=== PATIENT | male | born 1965 | race Caucasian/White ===

== ENCOUNTER → 2018-02-22 13:57 | Outpatient (CLI) | payer BC ==
[2015-02-03 15:39] VITALS: BMI 29.6
[~2018-02-22 13:57] MED LIST: BAYER CHEWABLE81 MG PO; CARAFATE1 G PO; COMBIVENT RESPIM4 GM INH; HYDROCODONE-APA1 TAB PO; METOPROLOL-HCTZ1 TA3 PO; NEXIUM40 MG PO
== END | disposition home or self-care (01) ==
LOC: D.CT 13:57
DX: M79.605 Pain in left leg (principal); M79.604 Pain in right leg; I25.10 Atherosclerotic heart disease of native coronary artery without angina pectoris

== ENCOUNTER 2018-03-07 06:36 | Outpatient (CLI) | payer BC ==
[~2018-03-07] VITALS: Ht 177.8 cm; Wt 96.8 kg
--- NOTE | ~2018-03-07 | HEMODYNAMI ---
PATIENT:EMILY DOWNS MEDICAL RECORD: [id number] : 69 LOCATION:[facility] ADMISSION DATE: 03/07/18 Generatedon:03/07/20188:55 Patient name: EMILY DOWNS Patient #: [id number] SSN: : 1965 Date of study: 03/07/2018 Page: Of Hemodynamic Procedure Report Patient Data Patient Demographics Procedure consent was obtained First Name: EMILY Gender: Male Last Name: YARELI : 1965 [facility] Initial: LORENA Age: 53 year(s) Patient #: [id number] Race: Additional ID: [id number] Contact details [address]: [address] [place] [address] [place]O State: [place] City: [place] Zip code: [address] Past Medical History Allergies: No known allergies Admission Admission Data Admission Date: 03/07/2018 Admission Time: 6:36 Lab Results Lab Result Date: 03/07/2018 Lab Result Time: 7:20 Biochemistry Name Units Result Min Max BUN mg/dl 20 --(----)*- 7 18 Creatinine mg/dl 1 --(--*-)-- 0.6 1.3 CBC Name Units Result Min Max Hematocrit % 44.9 --(*---)-- 42 54 Hemoglobin g/dl 15.2 --(-*--)-- 13.5 17.5 Procedure Procedure Types Cath Procedure Peripheral Cath Diagnostic Procedure Building Construction Engineer Peripheral Procedures Brpxq-Esjbpsv-Erb-Off Procedure Description Procedure Date Procedure Date: 03/07/2018 Procedure Start Time: 8:42 Procedure End Time: 8:51 Procedure Staff Name Function [place] Connolly MD Performing Physician Katie Eller RN Nurse Bhanu Rajan RN Automotive Light Mechanic Lars Mcknight RT Monitor Sara Squires RT Scrub Procedure Data Cath Procedure Fluoroscopy Diagnostic fluoroscopy Total fluoroscopy Time: 0.7 time: 0.7 min min Diagnostic fluoroscopy Total fluoroscopy dose: 177 dose: 177 mGy mGy Contrast Material Contrast Material Type Amount (ml) Isovue 300 69 Entry Location Entry Primary Successful Side Size Upsize Upsize Entry Closure Succes sful Closure Location (Fr) 1 (Fr) 2 (Fr) Remarks Device Remarks Femoral Left 5 Fr Exoseal artery Estimated blood loss: 5 ml Diagnostic catheters Device Type Used For End Catheter Placement DIAGNOSTIC UF 5Fr Procedure catheter ([id number]) Procedure Complications No complications Procedure Medications Medication Administration Route Dosage 0.9% NaCl I.V. 100 ml/hr Oxygen etCO2 Nasal cannula 2 l/min Heparin Flush Bag added to field 2 bags (1000units/500ml NS) Fentanyl I.V. 50 mcg Versed I.V. 2 mg Lidocaine 2% added to field 20 Versed I.V. 2 mg Fentanyl I.V. 50 mcg Hemodynamics Rest HGB: 15.2 (g/dl) Heart Rate: 58 (bpm) Snapshots Pre Cath Intra NCS Post Cath Vital Signs Time Heart Resp SPO2 etCO2 NIBP (mmHg) Rhythm Pain Sedation Rate (ipm) (%) (mmHg) Status Level (bpm) 8:24:32 194 17 98 30.4 152/83(107) NSR 0 (11) 10(A) , No pain 8:28:52 66 18 98 27.4 139/89(111) NSR 0 (11) 10(A) , No pain 8:33:14 54 16 99 34.3 135/78(113) NSR 0 (11) 10(A) , No pain 8:37:34 59 18 99 23.6 132/80(95) NSR 0 (11) 10(A) , No pain 8:41:52 58 18 98 37.3 120/81(96) NSR 0 (11) 9(A) , No pain 8:46:08 62 16 97 29.6 115/77(99) NSR 0 (11) 9(A) , No pain 8:50:20 61 13 96 20.5 127/82(103) NSR 0 (11) 10(A) , No pain Medications Time Medication Route Dose Verified Delivered Reason Notes Effe ctiveness by by 8:24:10 0.9% NaCl I.V. 100 [place] used for ml/hr Mohsen Eller supervisor education 8:24:16 Oxygen etCO2 2 [place] used for Nasal l/min Mohsen Eller procedure cannula RN 8:39:55 Heparin Flush added 2 [place] used for Bag to bags Mohsen Eller procedure (1000units/500ml field RN NS) 8:40:05 Fentanyl I.V. 50 [place] for mcg Mohsen Eller sedation RN 8:40:13 Versed I.V. 2 mg [place] for Mohsen Eller sedation RN 8:42:33 Lidocaine 2% added 20ml [place] for local to vial Mohsen Connolly MD anesthetic field 8:47:51 Versed I.V. 2 mg [place] for Mohsen Eller sedation RN 8:47:56 Fentanyl I.V. 50 [place] for mcg Mohsen Eller sedation powder coat painter Log Time Note 8:10:36 Procedure type changed to Cath procedure, Peripheral Cath Diagnostic Procedure, Building Construction Engineer Peripheral Procedures, Hkiml-Xljlkjq-Vbg-Off 8:10:53 Time tracking: Regular hours (M-F 7:00 - 5:00) 8:10:57 Plan of Care:Hemodynamics will remain stable., Cardiac rhythm will remain stable., Comfort level will be maintained., Respiratory function will remain adequate., Patient/ family verbilizes understanding of procedure., Procedure tolerated without complication., Recovers from procedure without complications.. 8:11:00 Bhanu Rajan RN sent for patient. Start room use. 8:19:30 Patient received from Pre/Post Procedure Room to CCL 1 Alert and oriented. Tansferred to table in Supine position. 8:19:31 Warm blankets applied, and cathy hugger turned on for patient comfort. 8:19:32 Correct patient and procedure confirmed by team. 8:19:34 Signed procedure consent form obtained from patient. 8:19:35 ECG and BP/O2 sat monitors applied to patient. 8:19:36 Full Disclosure recording started 8:23:14 Vital chart was started 8:24:10 0.9% NaCl 100 ml/hr I.V. was administered by Katie Eller RN; used for procedure; 8:24:16 Oxygen 2 l/min etCO2 Nasal cannula was administered by Katie Eller RN; used for procedure; 8:34:58 Baseline sample Acquired. 8:35:02 Rhythm: sinus rhythm 8:35:20 H&P Date Dictated: 02/08/2018 Within 30 days and on chart., H&P Addendum completed by physician on day of procedure. (MUST COMPLETE FOR ALL OUTPATIENTS). 8:35:21 Pre-procedure instructions explained to patient. 8:35:21 Pre-op teaching completed and patient verbalized understanding. 8:35:22 Family in waiting room. 8:35:23 Patient NPO since Midnight. 8:35:33 Patient allergic to No known allergies 8:35:35 Is the patient allergic to Iodine/contrast media? No. 8:35:38 Is patient on blood thinner?Yes 8:35:44 ACC The patient was administered the following blood thiners within the last 24 hours: ACCAspirin 8:35:47 Patient diabetic? No. 8:35:49 Previous problem with sedation/anesthesia? No ? 8:35:51 Snore? No 8:35:52 Sleep apnea? No 8:35:53 Deviated septum? No 8:35:53 Opens mouth fully? Yes 8:35:54 Sticks out tongue? Yes 8:35:55 Airway obstruction? No ? 8:35:57 Dentures? No ? 8:36:00 Pre procedure: right posterior tibial pulse 2+ Normal; easily identifiable; not easily obliterated 8:36:10 Pre procedure: left dorsailis pedis pulse 0-Absent 8:36:13 Patient pain scale 0/10 ?. 8:36:16 IV patent on arrival in left hand with 0.9% NaCl at KVO. 8:37:31 Lab Result : BUN 20 mg/dl 8:37:31 Lab Result : Creatinine 1 mg/dl 8:37:31 Lab Result : Hemoglobin 15.2 g/dl 8:37:31 Lab Result : Hematocrit 44.9 % 8:37:33 Lab results completed and on chart. 8:37:35 Bilateral groins area was prepped with chlora-prep and draped in sterile fashion 8:37:36 Alarms reviewed by R. N. 8:37:36 Sharps counted by scrub and verified by R.N. 8:37:39 ACIST Syringe (65779) opened to sterile field. 8:37:40 Bag Decanter (2002S) opened to sterile field. 8:37:40 Medline Cath Pack ([id number]) opened to sterile field. 8:37:41 ACIST Hand Control (83429) opened to sterile field. 8:37:42 ACIST Manifold (04696) opened to sterile field. 8:37:43 Tegaderm 4 x 4 (1626W) opened to sterile field. 8:37:44 SHEATH 5FR Deep Run (PVU141) opened to sterile field. 8:37:45 DIAGNOSTIC WIRE .035 260cm J wire (205509) opened to sterile field. 8:38:03 Physician arrived 8:38:04 --------ALL STOP TIME OUT------ 8:38:04 Final Timeout: patient, procedure, and site verified with staff and physician. All members of the team are in agreement. 8:38:06 Bilateral groins site verified by team. 8:38:09 Physical assessment completed. ASA score P 2 - A patient with mild systemic disease as per Lake Connolly MD. 8:38:11 Sedation plan: IV Moderate Sedation Medication:Versed, Fentanyl 8:38:43 Zero performed for pressure channel P1 8:39:55 Heparin Flush Bag (1000units/500ml NS) 2 bags added to field was administered by Katie Eller RN; used for procedure; 8:40:05 Fentanyl 50 mcg I.V. was administered by Katie Eller RN; for sedation; 8:40:13 Versed 2 mg I.V. was administered by Katie Eller RN; for sedation; 8:42:16 Procedure started. 8:42:19 Local anesthetic to left femerol artery with Lidocaine 2% by Lake Connolly MD.INITIAL ACCESS ONLY 8:42:33 Lidocaine 2% 20ml vial added to field was administered by Lake Connolly MD; for local anesthetic; 8:43:06 A 5 Fr sheath was inserted into the Left Femoral artery 8:45:09 A DIAGNOSTIC UF 5Fr catheter ([id number]) was advanced over the wire and used for Procedure. 8:45:48 Abdominal angiogram w/ runoff was performed. 8:45:57 Left leg runoff performed. 8:46:14 Right leg runoff performed. 8:47:25 Left leg runoff performed. 8:47:51 Versed 2 mg I.V. was administered by Katie Eller RN; for sedation; 8:47:56 Fentanyl 50 mcg I.V. was administered by Katie Eller RN; for sedation; 8:49:49 DIAGNOSTIC WIRE .035 260cm J wire (183755) opened to sterile field. 8:49:53 Catheter removed. 8:50:01 EXOSEAL 5Fr (EX500) opened to sterile field. 8:50:09 Sheath removed intact; hemostasis achieved with Exoseal to the Left Femoral artery. 8:50:11 Procedure ended.(Physican Out) 8:50:27 Fluoroscopy time 00.70 minutes. 8:50:30 Fluoroscopy dose: 177 mGy 8:50:30 Flurop Dose total: 177 8:50:34 Contrast amount:Isovue 300 69ml. 8:50:35 Sharps counted by scrub and verified by R.N. 8:50:40 Insertion/operative site no bleeding no hematoma. 8:50:42 Post-op/insertion site Left Femoral artery dressed using a 4 x 4 and Tegaderm. 8:50:47 Post left femerol artery:stable, soft, clean and dry 8:50:49 Post Procedure Pulses reassessed and unchanged 8:50:51 Post-procedure physical assessment completed. ASA score P 2 - A patient with mild systemic disease as per Lake Connolly MD. 8:50:53 Post procedure rhythm: unchanged. 8:50:55 Estimated blood loss: 5 ml 8:50:57 Post procedure instruction explained to patient.Patient verbalizes understanding. 8:50:57 Patient needs reinforcement of post procedure teaching. 8:51:24 Procedure and supply charges have been captured, reviewed, submitted and are correct. 8:51:32 Procedure Complication : No complications 8:51:35 Vital chart was stopped 8:51:35 See physician's report for complete and final results. 8:51:36 Report given to Pre/Post Procedure Room. 8:51:39 Patient transfered to Pre/Post Procedure Room with Stretcher. 8:51:41 Procedure ended. 8:51:41 Full Disclosure recording stopped 8:51:45 End room use (Document Last) Device Usage Item Name Manufacture Quantity Catalog Hospital Part Current Minimal L ot# / Number Charge Number Stock Stock Serial# Code ACIST Acist 1 [id number] 768952 758006 403258 20 RETAIL PRO (90414) [employer] Bag Microtek 1 2001S 092288 97884 907518 5 Decanter Medical Inc. (2001S) Medline Medline 1 [id number] 562085 27295 900274 5 Cath Pack ([id number]) ACIST Hand Acist 1 47345 012552 179879 084530 5 Control Medical (32395) Systems Inc ACIST Acist 1 02695 657757 424710 031958 5 Manifold Medical (02530) Systems Inc Tegaderm 4 3M 1 1626W 993934 640848 464819 5 x 4 (1626W) SHEATH 5FR Terumo 1 [id number] 887539 560038 954680 5 Deep Run (BXF938) DIAGNOSTIC [facility] 2 168032 210290 762634 218377 30 WIRE .035 260cm J wire (345868) DIAGNOSTIC Cardinal 1 [id number] 057939 438576 695179 10 UF 5Fr Health catheter (303113H9) EXOSEAL 5Fr Cardinal 1 EX500 265272 783174 244040 10 (EX500) Health Signature Audit [place] Stage Time Signature Unsigned Intra-Procedure 03/07/2018 Lars Mcknight 8:55:14 AM RT(R) Signatures Monitor : Lars Mcknight RT Signature : Date : Time : [address] [place] [address]
[2018-03-07] MEDS ORDERED: LOSARTAN POTASS25 MG PO (07:00)
[2018-03-07] MEDS ORDERED: RANEXA1000 MG PO (07:01)
[2018-03-07 07:11] VITALS: BP 132/80; Ht 177.8 cm; Wt 96.8 kg
[2018-03-07] MEDS ORDERED: BYSTOLIC5 MG PO (07:26)
[2018-03-07] MEDS ORDERED: NORVASC5 MG PO (07:26)
[2018-03-07 07:37] LABS: BASOPHILS 0.6 % (0-2); EOSINOPHILS 1.6 % (0-7); HEMATOCRIT 44.9 % (42.0-54.0); HEMOGLOBIN 15.2 g/dL (13.5-17.5); IMMATURE GRANULOCYTES 0.2 % (0-5); LYMPHOCYTES 39.8 % (15-50); MCH 31.3 pg (26.0-34.0); MCHC 33.9 g/dL (31.0-37.0); MCV 92.4 fL (80.0-100.0); MEAN PLATELET VOLUME 10.7 fL (7.4-10.4); MONOCYTES 10.4 % (2-11); NEUTROPHILS 47.4 % (40-80); PLATELET COUNT 204 10x3/uL (130-400); RBC 4.86 10x6/uL (4.20-6.10); WBC 5.1 10x3/uL (4.8-10.8)
[2018-03-07 08:01] LABS: CALC OSMOLALITY 281 mosm/kg (275-300); CALCIUM 8.6 mg/dL (8.5-10.1); CARBON DIOXIDE 26.8 mmol/L (21.0-32.0); CHLORIDE - SERUM 103 mmol/L (98-107); GLUCOSE 111 mg/dL (74-106); POTASSIUM - SERUM 3.9 mmol/L (3.5-5.1); SODIUM 139 mmol/L (136-145); UREA NITROGEN 20 mg/dL (7-18); eGFR NON AFRICAN AMERICAN 84 mL/min (90-120)
--- NOTE | 2018-03-07 09:19 | NUR ---
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 L/FOOT WARM TO TOUCH, INSTRUCTED PATIENT TO KEEP HEAD FLAT ON PILLOW WITH LLE STRAIGHT. DR GRECO PRESENT IN ROOM TALKING TO PATIENT AND
--- NOTE | 2018-03-07 09:34 | NUR ---
5 FR EXOSEAL L/GROIN REMAINS CDI WITH NO BLEEDING OR HEMATOMA NOTED. HR 60 BP 114/75 NO DISTRESS NOTED.
--- NOTE | 2018-03-07 09:49 | NUR ---
RESTING QUIETLY WITH NO DISTRESS VSS AND 5 FR EXOSEAL L/GROIN CDI
--- NOTE | 2018-03-07 10:05 | NUR ---
5 FR EXOSEAL L/GROIN CDI WITH NO DISTRESS NOTED VSS AND PATIENT RESTING QUIETLY
--- NOTE | 2018-03-07 10:20 | NUR ---
PATIENT CONTINUES TO SLEEP WITH NO DISTRESS. L/GROIN REMAINS CDI CALL LIGHT IS IN REACH WITH FAMILY AT BEDSIDE
--- NOTE | 2018-03-07 10:52 | NUR ---
5 FR EXOSEAL L/GROIN CDI WITH NO BLEEDING OR HEMATOMA NOTED. REPOSITIONED TO SITTING WITH HOB UP 30 WITH CHEST PAIN DENIED
--- NOTE | 2018-03-07 11:21 | NUR ---
PIV REMOVED WITH DRESSING APPLIED. 5 FR EXOSEAL L/GROIN REMAINS CDI NO BLEEDING OR HEMATOMA NOTED.
--- NOTE | 2018-03-07 11:41 | NUR ---
VERBAL AND WRITTEN DISCHARGE GONE OVER WITH PATIENT AND BOTH VERBALIZED UNDERSTANDING. 5 FR EXOSEAL L/GROIN REMAINS CDI WITH NO BLEEDING OR HEMATOMA NOTED. PATIENT LEFT VIA WC TO PARKING FOR TRANSPORT HOME NO DISTRESS
== END 2018-03-07 11:43 | disposition home or self-care (01) ==
LOC: D.CATH 06:36
PROVIDERS: Internal Medicine Cardiovascular Disease
DX: I70.249 Atherosclerosis of native arteries of left leg with ulceration of unspecified site (principal)

== ENCOUNTER 2018-03-14 11:18 | Outpatient (CLI) | payer BC ==
[~2018-03-14] VITALS: Ht 177.8 cm; Wt 96.8 kg
--- NOTE | ~2018-03-14 | HEMODYNAMI ---
PATIENT:EMILY DOWNS MEDICAL RECORD: [id number] : 69 LOCATION:[facility] ADMISSION DATE: 03/14/18 Generatedon:03/14/201814:41 Patient name: EMILY DOWNS Patient #: [id number] SSN: : 1965 Date of study: 03/14/2018 Page: Of Hemodynamic Procedure Report Patient Data Patient Demographics Procedure consent was obtained First Name: EMILY Gender: Male Last Name: YARELI : 1965 [facility] Initial: LORENA Age: 53 year(s) Patient #: [id number] Race: Additional ID: [id number] Contact details Address: [address] [place] [address] [place] State: [place] City: [place] Zip code: [address] Past Medical History Allergies: No known allergies Admission Admission Data Admission Date: 03/14/2018 Admission Time: 11:18 Admit Source: Other Lab Results Lab Result Date: 03/14/2018 Lab Result Time: 11:50 Biochemistry Name Units Result Min Max BUN mg/dl 17 --(---*)-- 7 18 Creatinine mg/dl 1 --(--*-)-- 0.6 1.3 CBC Name Units Result Min Max Hematocrit % 44.3 --(*---)-- 42 54 Hemoglobin g/dl 15.1 --(-*--)-- 13.5 17.5 Procedure Procedure Types Cath Procedure Peripheral vascular Intervention Stent Stent-Fem/Popw/plasty Procedure Description Procedure Date Procedure Date: 03/14/2018 Procedure Start Time: 13:15 Procedure End Time: 14:33 Procedure Staff Name Function Lake Connolly MD Performing Physician Lars Mcknight RT Monitor Rolando Bunn RT Scrub Anatoly Mo RN Nurse Procedure Data Cath Procedure Fluoroscopy Diagnostic fluoroscopy Total fluoroscopy Time: time: 21.7 min 21.7 min Diagnostic fluoroscopy Total fluoroscopy dose: 475 dose: 475 mGy mGy Contrast Material Contrast Material Type Amount (ml) Isovue 300 122 Entry Location Entry Primary Successful Side Size Upsize 1 Upsize Entry Closure Successful Closure Location (Fr) (Fr) 2 (Fr) Remarks Device Remarks Femoral Right 5 Fr Manual vein Compressio n Femoral Right 6 Fr 6 Fr 6 Fr Exoseal artery Short Mid-Length Short Estimated blood loss: 10 ml Diagnostic catheters Device Type Used For End Catheter Placement DIAGNOSTIC IM 5Fr Procedure catheter ([id number]) Procedure Complications No complications Procedure Medications Medication Administration Route Dosage 0.9% NaCl I.V. 100 ml/hr Oxygen etCO2 Nasal cannula 2 l/min Heparin Flush Bag added to field 2 bags (1000units/500ml NS) Lidocaine 2% added to field 20 Benadryl I.V. 50 mg Versed I.V. 2 mg Fentanyl I.V. 100 mcg Versed I.V. 2 mg Fentanyl I.V. 100 mcg Versed I.V. 1 mg Versed I.V. 1 mg Fentanyl I.V. 50 mcg Heparin Bolus I.V. 8000 units Fentanyl I.V. 50 mcg Versed I.V. 1 mg Plavix P.O. 600 mg Versed I.V. 1 mg Hemodynamics Rest HGB: 15.1 (g/dl) Heart Rate: 59 (bpm) Snapshots Pre Cath Intra NCS Post Cath Vital Signs Time Heart Resp SPO2 etCO2 NIBP (mmHg) Rhythm Pain Sedation Rate (ipm) (%) (mmHg) Status Level (bpm) 12:58:16 58 11 98 36.2 135/89(98) NSR 0 (11) 10(A) , No pain 13:02:34 60 18 97 30.2 119/57(89) NSR 0 (11) 10(A) , No pain 13:06:35 56 15 95 32.4 123/85(96) NSR 0 (11) 10(A) , No pain 13:10:37 59 16 96 28.6 126/93(102) NSR 0 (11) 10(A) , No pain 13:14:43 62 12 92 30.2 124/81(109) NSR 0 (11) 10(A) , No pain 13:18:45 61 12 94 36.9 134/96(117) NSR 0 (11) 10(A) , No pain 13:22:48 63 14 92 30.9 137/100(116) NSR 0 (11) 10(A) , No pain 13:26:56 63 11 93 34.7 134/91(113) NSR 0 (11) 9(A) , No pain 13:31:00 64 12 92 40 137/97(119) NSR 0 (11) 9(A) , No pain 13:35:14 64 12 92 42.2 133/71(97) NSR 0 (11) 9(A) , No pain 13:39:24 65 25 96 22.6 120/78(91) NSR 0 (11) 9(A) , No pain 13:43:32 64 16 95 41.5 118/71(93) NSR 0 (11) 9(A) , No pain 13:47:38 63 17 96 38.4 111/76(96) NSR 0 (11) 9(A) , No pain 13:51:37 63 15 92 39.9 123/83(105) NSR 0 (11) 9(A) , No pain 13:55:37 65 13 92 41.4 134/91(119) NSR 0 (11) 9(A) , No pain 13:59:51 65 13 93 42.2 143/68(119) NSR 0 (11) 9(A) , No pain 14:04:03 64 13 92 43.7 128/81(113) NSR 0 (11) 9(A) , No pain 14:08:10 67 24 96 30.1 112/77(90) NSR 0 (11) 9(A) , No pain 14:12:12 62 13 95 40 130/80(94) NSR 0 (11) 9(A) , No pain 14:16:18 64 11 94 40.6 118/86(96) NSR 0 (11) 9(A) , No pain 14:20:24 62 17 95 36.2 120/76(98) NSR 0 (11) 9(A) , No pain 14:24:27 63 22 96 37.7 118/85(99) NSR 0 (11) 9(A) , No pain 14:28:31 64 14 93 21.8 134/78(98) NSR 0 (11) 9(A) , No pain 14:32:41 64 16 96 39.2 112/80(94) NSR 0 (11) 9(A) , No pain Medications Time Medication Route Dose Verified Delivered Reason Notes Effectiveness by by 12:56:29 0.9% NaCl I.V. 100 Anatoly Anatoly Per physician ml/hr Chely Mo RN RN 12:56:38 Oxygen etCO2 2 Anatoly Anatoly Per physician Nasal l/min Chely Mo cannula RN RN 12:56:47 Heparin Flush added 2 Anatoly Anatoly used for Bag to bags Chely Mo procedure (1000units/500ml field RN RN NS) 12:56:59 Lidocaine 2% added 20ml Anatoly Anatoly for local to vial Lorjacoby Mo anesthetic field RN RN 12:57:10 Benadryl I.V. 50 mg Anatoly Anatoly Per physician Chely Mo RN RN 13:12:50 Versed I.V. 2 mg Anatoly Anatoly for sedation Chely Mo RN RN 13:13:02 Fentanyl I.V. 100 Anatoly Anatoly for sedation mcg Chely Mo RN RN 13:16:28 Versed I.V. 2 mg Anatoly Anatoly for sedation Chely Mo RN RN 13:16:33 Fentanyl I.V. 100 Anatoly Anatoly for sedation mcg Chely Mo RN RN 13:38:31 Versed I.V. 1 mg Anatoly Anatoly for sedation Chely Mo RN RN 13:49:01 Versed I.V. 1 mg Anatoly Anatoly for sedation Chely Mo RN RN 13:49:08 Fentanyl I.V. 50 Anatoly Anatoly for sedation mcg Chely Mo RN RN 14:02:30 Heparin Bolus I.V. 8,000 Anatoly Anatoly for units Chely Mo anticoagulation RN RN 14:08:15 Fentanyl I.V. 50 Anatoly Anatoly for sedation mcg Chely Mo RN RN 14:21:31 Versed I.V. 1 mg Anatoly Anatoly for sedation Chely Mo RN RN 14:32:29 Plavix P.O. 600 Anatoly Anatoly for mg Chely Mo antiplatelet RN RN therapy 14:34:52 Versed I.V. 1 mg Anatoly Anatoly for sedation Chely Mo RN medical biller coder Log Time Note 12:33:06 Informed consent obtained and on chart 12:33:10 Admit Source: Other 12:33:29 Diagnostic Cath status Elective 12:33:33 Time tracking: Regular hours (M-F 7:00 - 5:00) 12:33:37 Plan of Care:Hemodynamics will remain stable., Cardiac rhythm will remain stable., Comfort level will be maintained., Respiratory function will remain adequate., Patient/ family verbilizes understanding of procedure., Procedure tolerated without complication., Recovers from procedure without complications.. 12:41:37 Rolando Bunn RT(R) sent for patient. Start room use. 12:43:49 Patient received from Pre/Post Procedure Room to CCL 2 Alert and oriented. Tansferred to table in Supine position. 12:43:50 Warm blankets applied, and cathy hugger turned on for patient comfort. 12:43:50 Correct patient and procedure confirmed by team. 12:43:51 ECG and BP/O2 sat monitors applied to patient. 12:43:53 Full Disclosure recording started 12:56:29 0.9% NaCl 100 ml/hr I.V. was administered by Anatoly Mo RN; Per physician; 12:56:38 Oxygen 2 l/min etCO2 Nasal cannula was administered by Anatoly Mo RN; Per physician; 12:56:47 Heparin Flush Bag (1000units/500ml NS) 2 bags added to field was administered by Anatoly Mo RN; used for procedure; 12:56:59 Lidocaine 2% 20ml vial added to field was administered by Anatoly Mo RN; for local anesthetic; 12:57:10 Benadryl 50 mg I.V. was administered by Anatoly Mo RN; Per physician; 12:57:15 Vital chart was started 13:00:33 Baseline sample Acquired. 13:00:38 Rhythm: sinus rhythm 13:00:57 H&P Date Dictated: 03/14/2018 New H&P dictated by physician.. 13:00:58 Pre-procedure instructions explained to patient. 13:00:58 Pre-op teaching completed and patient verbalized understanding. 13:01:00 Family in waiting room. 13:01:01 Patient NPO since Midnight. 13:01:06 Patient allergic to No known allergies 13:01:09 Is the patient allergic to Iodine/contrast media? No. 13:01:10 Is patient on blood thinner?No 13:01:11 Patient diabetic? No. 13:01:13 Previous problem with sedation/anesthesia? No ? 13:01:14 Snore? Yes 13:01:15 Sleep apnea? Yes 13:01:15 Deviated septum? No 13:01:19 Opens mouth fully? Yes 13:01:21 Sticks out tongue? Yes 13:01:23 Airway obstruction? Yes COPD 13:01:26 Dentures? No ? 13:01:38 Pre procedure: right dorsailis pedis pulse 2+ Normal; easily identifiable; not easily obliterated 13:01:41 Pre procedure: left dorsailis pedis pulse 1+ Palpable, but thready & weak; easily obliterated 13:01:43 Patient pain scale 0/10 ?. 13:01:48 IV patent on arrival in left wrist with 0.9% NaCl at [facility]. 13:03:04 Lab Result : BUN 17 mg/dl 13:03:04 Lab Result : Creatinine 1 mg/dl 13:03:04 Lab Result : Hemoglobin 15.1 g/dl 13:03:04 Lab Result : Hematocrit 44.3 % 13:03:06 Lab results completed and on chart. 13:03:08 Bilateral groins area was prepped with chlora-prep and draped in sterile fashion 13:03:08 Alarms reviewed by R. N. 13:03:09 Sharps counted by scrub and verified by R.N. 13:03:11 ACIST Syringe (30808) opened to sterile field. 13:03:12 Bag Decanter (2002S) opened to sterile field. 13:03:12 Medline Cath Pack ([id number]) opened to sterile field. 13:03:13 ACIST Hand Control (78038) opened to sterile field. 13:03:13 ACIST Manifold (10182) opened to sterile field. 13:03:14 Tegaderm 4 x 4 (1626W) opened to sterile field. 13:03:17 DIAGNOSTIC WIRE .035 260cm J wire (252368) opened to sterile field. 13:03:45 GLIDE WIRE Angled Super Stiff 180cm (JJ1922) opened to sterile field. 13:03:46 TUBING High Pressure Extension Tubing ([place]olly) ([id number]) opened to sterile field. 13:03:47 SHEATH 6FR [place] (YPX411) opened to sterile field. 13:03:51 INFLATOR Merit BasixCompak (AF7638) opened to sterile field. 13:04:03 SHEATH 6FR Destination (RSR01) opened to sterile field. 13:06:02 Zero performed for pressure channel P1 13:06:05 Zero performed for pressure channel P1 13:06:08 Zero performed for pressure channel P1 13:06:50 TORQUE DEVICE PLASTIC .038 ( TD01) opened to sterile field. 13:10:32 Physician arrived 13::33 --------ALL STOP TIME OUT------ 13:10:38 Final Timeout: patient, procedure, and site verified with staff and physician. All members of the team are in agreement. 13:10:40 Bilateral groins site verified by team. 13:10:43 Physical assessment completed. ASA score P 2 - A patient with mild systemic disease as per Lake Connolly MD. 13:10:46 Sedation plan: IV Moderate Sedation Medication:Versed, Fentanyl 13:12:50 Versed 2 mg I.V. was administered by Anatoly Mo RN; for sedation; 13:13:02 Fentanyl 100 mcg I.V. was administered by Anatoly Mo RN; for sedation; 13:15:56 Procedure started. 13:15:59 Local anesthetic to right femoral artery with Lidocaine 2% by Lake Connolly MD.INITIAL ACCESS ONLY 13:16:28 Versed 2 mg I.V. was administered by Anatoly Mo RN; for sedation; 13:16:33 Fentanyl 100 mcg I.V. was administered by Anatoly Mo RN; for sedation; 13:18:24 SHEATH 5FR [place] (HYJ249) opened to sterile field. 13:18:48 A 5 Fr sheath was inserted into the Right Femoral vein 13:22:48 A 6 Fr Short sheath was inserted into the Right Femoral artery 13:23:04 A DIAGNOSTIC IM 5Fr catheter ([id number]) was advanced over the wire and used for Procedure. 13:24:13 J WIRE ADVANCED AROUND HORN. 13:24:17 Catheter removed. 13:24:25 Sheath upsized to a 6 Fr Mid-Length. 13:26:35 Wire removed. 13:26:39 Left leg runoff performed. 13:30:46 REGALIA 300cm wire ([id number]) opened to sterile field. 13:30:59 REGALIA wire advanced. 13:35:11 QUICK CROSS Extreme .018-15 150 cm catheter (547851) opened to sterile field. 13:36:02 QUICK CROSS CATHETER ADVANCED. 13:38:31 Versed 1 mg I.V. was administered by Anatoly Mo RN; for sedation; 13:49:01 Versed 1 mg I.V. was administered by Anatoly Mo RN; for sedation; 13:49:08 Fentanyl 50 mcg I.V. was administered by Anatoly Mo RN; for sedation; 13:51:20 Wire removed. 13:56:04 QUICK CROSS CATHETER REMOVED. 13:56:37 CXI SUPPORT .035 135 CM STR catheter ([id number]) opened to sterile field. 13:56:55 CXI SUPPORT CATHETER ADVANCED. 13:59:04 Wire removed. 14:00:08 TREASURE 12 300cm wire ([id number]) opened to sterile field. 14:01:21 TREASURE wire advanced. 14:01:24 Wire advanced across lesion. 14:02:30 Heparin Bolus 8,000 units I.V. was administered by Anatoly Mo RN; for anticoagulation; 14:03:34 CXI REMOVED 14:07:58 Inflate balloon Inflation number: 1 A SABER 2.5 X 100 X 150 balloon ([id number]) was prepped and advanced across the Mid Superficial Femoral, Left, then inflated to 8 YEISON for 0:10 (min:sec). 14:08:15 Fentanyl 50 mcg I.V. was administered by Anatoly Mo RN; for sedation; 14:08:48 Inflation number: 2 The SABER 2.5 X 100 X 150 balloon ([id number]) was reinflated across the Mid Superficial Femoral, Left, to 8 YEISON for 0:10 (min:sec). 14:12:00 Balloon removed over the wire. 14:12:51 Wire removed. 14:13:08 J WIRE wire advanced. 14:13:11 Wire advanced across lesion. 14:14:17 Inflate balloon Inflation number: 3 A POWERFLEX PRO 4.0 X 80 X 135 balloon ([id number]) was prepped and advanced across the Mid Superficial Femoral, Left, then inflated to 4 YEISON for 0:10 (min:sec). 14:14:56 Inflation number: 4 The POWERFLEX PRO 4.0 X 80 X 135 balloon ([id number]) was reinflated across the Mid Superficial Femoral, Left, to 6 YEISON for 0:10 (min:sec). 14:15:10 Balloon removed over the wire. 14:18:35 SMART 6 X 120 X 120 stent ([id number]) was deployed across Mid Superficial Femoral, Left . 14:21:31 Versed 1 mg I.V. was administered by Anatoly Mo RN; for sedation; 14:22:23 Stent catheter was removed intact over wire. 14:24:48 Inflate balloon Inflation number: 5 A POWERFLEX PRO 6.0 x 100 x 135cm balloon ([id number]) was prepped and advanced across the Mid Superficial Femoral, Left, then inflated to 6 YEISON for 0:10 (min:sec). 14:25:57 Inflation number: 6 The POWERFLEX PRO 6.0 x 100 x 135cm balloon ([id number]) was reinflated across the Mid Superficial Femoral, Left, to 5 YEISON for 0:10 (min:sec). 14:26:55 Balloon removed over the wire. 14:28:01 Sheath upsized to a 6 Fr Short. 14:28:11 Wire removed. 14:28:20 EXOSEAL 6Fr (EX600) opened to sterile field. 14:28:32 Sheath removed intact; hemostasis achieved with Exoseal to the Right Femoral artery. 14:28:40 Sheath removed intact; hemostasis achieved with Manual Compression to the Right Femoral vein. 14:28:42 Procedure ended.(Physican Out) 14:30:41 Fluoroscopy time 21.70 minutes. 14:30:44 Flurop Dose total: 475 14:30:44 Fluoroscopy dose: 475 mGy 14:30:48 Contrast amount:Isovue 300 122ml. 14:30:50 Sharps counted by scrub and verified by R.N. 14:30:50 Insertion/operative site no bleeding no hematoma. 14:30:54 Post-op/insertion site Right Femoral artery dressed using a 4 x 4 and Tegaderm. 14:30:58 Post-op/insertion site Right Femoral vein dressed using a 4 x 4 and Tegaderm. 14:31:04 Post right femoral artery:stable, soft, clean and dry 14:31:08 Post right femoral vein:stable, soft, clean and dry 14:31:09 Post Procedure Pulses reassessed and unchanged 14:31:11 Post-procedure physical assessment completed. ASA score P 2 - A patient with mild systemic disease as per Lake Connolly MD. 14:31:13 Post procedure rhythm: unchanged. 14:31:15 Estimated blood loss: 10 ml 14:31:16 Post procedure instruction explained to patient.Patient verbalizes understanding. 14:31:17 Patient needs reinforcement of post procedure teaching. 14:32:29 Plavix 600 mg P.O. was administered by Anatoly Mo RN; for antiplatelet therapy; 14:33:40 Procedure and supply charges have been captured, reviewed, submitted and are correct. 14:33:43 Procedure Complication : No complications 14:33:45 Vital chart was stopped 14:33:46 See physician's report for complete and final results. 14:33:47 Report given to Pre/Post Procedure Room. 14:33:50 Patient transfered to Pre/Post Procedure Room with Stretcher. 14:33:52 Procedure ended. 14:33:52 Full Disclosure recording stopped 14:33:56 End room use (Document Last) 14:34:52 Versed 1 mg I.V. was administered by Anatoly Mo RN; for sedation; Intervention Summary Intervention Notes Time ActionType Lesion and Equipment Action# Pressure Duration Attributes Used 14:07:58 Inflate Mid SABER 2.5 X 1 8 00:10 balloon Superficial 100 X 150 Femoral, balloon Left ([id number]) 14:08:48 Reinflate Mid SABER 2.5 X 2 8 00:10 balloon Superficial 100 X 150 Femoral, balloon Left ([id number]) 14:14:17 Inflate Mid POWERFLEX 3 4 00:10 balloon Superficial PRO 4.0 X Femoral, 80 X 135 Left balloon ([id number]) 14:14:56 Reinflate Mid POWERFLEX 4 6 00:10 balloon Superficial PRO 4.0 X Femoral, 80 X 135 Left balloon ([id number]) 14:18:35 Deploy self Mid SMART 6 X 1 expanding Superficial 120 X 120 stent Femoral, stent Left ([id number]) 14:24:48 Inflate Mid POWERFLEX 5 6 00:10 balloon Superficial PRO 6.0 x Femoral, 100 x 135cm Left balloon ([id number]) 14:25:57 Reinflate Mid POWERFLEX 6 5 00:10 balloon Superficial PRO 6.0 x Femoral, 100 x 135cm Left balloon ([id number]) Device Usage Item Name Manufacture Quantity Catalog Hospital Part Current Minim al Lot# / Number Charge Number Stock Stock Serial# Code ACIST Acist Medical 1 48927 031380 991300 366747 20 Syringe Systems Inc (12855) Bag Decanter Microtek 1 2001S 359772 38224 306280 5 (2001S) Medical Inc. Medline Cath Medline 1 [id number] 505967 80938 514051 5 Pack ([id number]) ACIST Hand [employer]ist Medical 1 03469 194941 387543 725846 5 Control Systems Inc (38719) ACIST [employer]ist Medical 1 25810 024821 883641 177430 5 Manifold Systems Inc (34692) Tegaderm 4 x 3M 1 1626W 954982 398421 944590 5 4 (1626W) DIAGNOSTIC [facility] 1 987610 076189 726652 791189 30 WIRE .035 260cm J wire (440369) GLIDE WIRE Terumo 1 LM8098 465246 844750 5 Angled Super Stiff 180cm (ZZ4715) TUBING High [facility] Medical 1 ZH7823D 516731 31315 732566 10 Pressure Extension Tubing ([place]) (QO6362X) SHEATH 6FR Terumo 1 AOO870 049134 413688 299198 40 [place] (GLA370) INFLATOR [facility] 1 SB9710 981434 055860 484306 15 [facility] BasixCompak (NC6191) SHEATH 6FR Terumo 1 RSR01 841655 35498 939317 5 Destination (RSR01) TORQUE [place] 1 TD01 662058 520197 338222 5 DEVICE Scientific PLASTIC .038 ( TD01) SHEATH 5FR Terumo 1 HAO997 552506 917651 438302 5 [place] (YBQ328) DIAGNOSTIC Cardinal 1 [id number] 079276 917220 260694 5 IM 5Fr Health catheter (246739L) REGALIA Cardiovascular 1 [id number] 444888 398727 559198 1 300cm wire systems ([id number]) QUICK CROSS Spectranetics 1 518-035 585111 886582 5 Extreme .018-15 150 cm catheter (138038) CXI SUPPORT [facility] 1 Y25550 385152 990389 543528 5 .035 135 CM STR catheter (E33114) TREASURE 12 Cardiovascular 1 [id number] 513332 046271 230583 5 300cm wire systems ([id number]) SABER 2.5 X Cardinal 1 [id number] 743280 666124 5 100 X 150 Health balloon ([id number]) POWERFLEX Cardinal 1 [id number] 852063 501062 5 PRO 4.0 X 80 Health X 135 balloon ([id number]) SMART 6 X Cardinal 1 [id number] 905467 075151 0 120 X 120 Health stent ([id number]) POWERFLEX Cardinal 1 [id number] 861679 661527 310017 5 PRO 6.0 x Health 100 x 135cm balloon ([id number]) EXOSEAL 6Fr Cardinal 1 EX600 977569 972037 918871 10 (EX600) Health Signature Audit [place] Stage Time Signature Unsigned Intra-Procedure 03/14/2018 Lars Mcknight 2:41:22 PM RT(R) Signatures Monitor : Lars Mcknight RT Signature : Date : Time : [address] [address]
[~2018-03-14 11:18] MED LIST changes: +BYSTOLIC5 MG PO; +LOSARTAN POTASS25 MG PO; +NORVASC5 MG PO; +RANEXA1000 MG PO
[2018-03-14 11:59] VITALS: BP 119/77; Ht 177.8 cm; Wt 96.8 kg
[2018-03-14 12:08] LABS: BASOPHILS 0.3 % (0-2); EOSINOPHILS 1.3 % (0-7); HEMATOCRIT 44.3 % (42.0-54.0); HEMOGLOBIN 15.1 g/dL (13.5-17.5); IMMATURE GRANULOCYTES 0.1 % (0-5); LYMPHOCYTES 31.4 % (15-50); MCH 31.1 pg (26.0-34.0); MCHC 34.1 g/dL (31.0-37.0); MCV 91.2 fL (80.0-100.0); MEAN PLATELET VOLUME 10.7 fL (7.4-10.4); MONOCYTES 8.5 % (2-11); NEUTROPHILS 58.4 % (40-80); PLATELET COUNT 210 10x3/uL (130-400); RBC 4.86 10x6/uL (4.20-6.10); WBC 7.7 10x3/uL (4.8-10.8)
[2018-03-14 12:21] LABS: CALC OSMOLALITY 280 mosm/kg (275-300); CALCIUM 8.7 mg/dL (8.5-10.1); CARBON DIOXIDE 27.4 mmol/L (21.0-32.0); CHLORIDE - SERUM 104 mmol/L (98-107); GLUCOSE 100 mg/dL (74-106); POTASSIUM - SERUM 3.9 mmol/L (3.5-5.1); SODIUM 140 mmol/L (136-145); UREA NITROGEN 17 mg/dL (7-18); eGFR NON AFRICAN AMERICAN 84 mL/min (90-120)
[2018-03-14] MEDS ORDERED: PLAVIX75 MG PO (14:48)
--- NOTE | 2018-03-14 15:00 | NUR ---
2L NC, NO RESP DISTRESS. RIGHT GROIN 6F EXOSEAL CDI, NO BLEEDING OR HEMATOMA NOTED. NO C/O PAIN OR NAUSEA. VSS. FAMILY AT BEDSIDE, CALL LIGHT WITHIN REACH.
--- NOTE | 2018-03-14 15:30 | NUR ---
RESTING QUIETLY WITH EYES CLOSED. RIGHT GROIN 6F EXOSEAL CDI, NO BLEEDING OR HEMATOMA NOTED. DENIES ANY NEEDS AT THIS TIME. VSS. WILL CONTINUE TO MONITOR CLOSELY.
--- NOTE | 2018-03-14 15:45 | NUR ---
VOIDED 600CC INTO URINAL. RIGHT GROIN 6F EXOSEAL CDI, NO BLEEDING OR HEMATOMA NOTED. NO C/O AT THIS TIME. VSS. CALL LIGHT WITHIN REACH.
--- NOTE | 2018-03-14 16:15 | NUR ---
SIPPING ON DRINK AND EATING SANDWICH WITH NO C/O NAUSEA. RIGHT GROIN 6F EXOSEAL CDI, NO BLEEDING OR HEMATOMA NOTED. DENIES ANY NEEDS AT THIS TIME. VSS. CALL LIGHT WITHIN REACH.
--- NOTE | 2018-03-14 16:45 | NUR ---
RESTING COMFORTABLY WITH NO C/O. RIGHT GROIN 6F EXOSEAL CDI, NO BLEEDING OR HEMATOMA NOTED. 2L NC WITH NO RESP DISTRESS. VSS. WILL CONTINUE TO MONITOR CLOSELY.
--- NOTE | 2018-03-14 17:41 | NUR ---
HOB ELEVATED 30 DEGREES. RIGHT GROIN 6F EXOSEAL CDI, NO BLEEDING OR HEMATOMA NOTED. VSS. WILL CONTINUE TO MONITOR CLOSELY.
--- NOTE | 2018-03-14 18:00 | NUR ---
LEFT PIV D/C'D WITH CATHETER INTACT, BAND AID TO SITE. UP TO BEDSIDE TO GET DRESSED.
--- NOTE | 2018-03-14 18:10 | NUR ---
DISCHARGE INSTRUCTIONS ALONG WITH PLAVIX PRESCRIPTION GIVEN, VERBALIZED UNDERSTANDING.
--- NOTE | 2018-03-14 18:22 | NUR ---
TAKEN OUT VIA WHEELCHAIR BY CATH WALL MIRROR DEPARTMENT SUPERVISOR. LEFT FACILITY WITH FAMILY AND ALL PERSONAL BELONGINGS.
== END 2018-03-14 18:22 | disposition home or self-care (01) ==
LOC: D.CATH 11:18
PROVIDERS: Internal Medicine Cardiovascular Disease
DX: I70.212 Atherosclerosis of native arteries of extremities with intermittent claudication, left leg (principal); Z01.812 Encounter for preprocedural laboratory examination

== ENCOUNTER 2018-05-23 11:10 | Outpatient (CLI) | payer BC ==
[~2018-05-23] VITALS: Ht 177.8 cm; Wt 96.8 kg
--- NOTE | ~2018-05-23 | HEMODYNAMI ---
PATIENT:EMILY DOWNS MEDICAL RECORD: [id number] : 69 LOCATION:[facility] ADMISSION DATE: 05/23/18 Generatedon:05/23/201815:05 Patient name: EMILY DOWNS Patient #: [id number] SSN: : 1965 Date of study: 05/23/2018 Page: Of Hemodynamic Procedure Report Patient Data Patient Demographics Procedure consent was obtained First Name: EMILY Gender: Male Last Name: YARELI : 1965 Middle Initial: LORENA Age: 53 year(s) Patient #: [id number] Race: Additional ID: [id number] Contact details Address: [address] [place] [address] RAMAN VILLALPANDO State: [place] City: [place] Zip code: [address] Past Medical History Allergies: No known allergies Admission Admission Data Admission Date: 05/23/2018 Admission Time: 11:10 Procedure Procedure Types Cath Procedure Diagnostic Procedure LHC LHC w/Coronaries w/Grafts Sedation Charges Moderate Sedation up to 30 minutes PCI Procedure Coronary Stent Coronary Stent Initial x2 Procedure Description Procedure Date Procedure Date: 05/23/2018 Procedure Start Time: 14:31 Procedure End Time: 15:05 Procedure Staff Name Function Lake Connolly MD Performing Physician Sara Squires RT Monitor Anatoly Mo RN Nurse Snehal Walsh RT Scrub Procedure Data Cath Procedure Fluoroscopy Diagnostic fluoroscopy Total fluoroscopy Time: 7.1 time: 7.1 min min Diagnostic fluoroscopy Total fluoroscopy dose: dose: 1576 mGy 1576 mGy Contrast Material Contrast Material Type Amount (ml) Isovue 300 128 Entry Location Entry Primary Successful Side Size Upsize Upsize Entry Closure Succes sful Closure Location (Fr) 1 (Fr) 2 (Fr) Remarks Device Remarks Femoral Right 5 Fr 6 Fr Exoseal artery Short Estimated blood loss: 10 ml Diagnostic catheters Device Type Used For End Catheter Placement MULTIPACK JL 4.0 5Fr Left Coronary catheter Angiography DIAGNOSTIC AR MOD 5Fr Right Coronary Catheter ([id number]) Angiography DIAGNOSTIC AR MOD 5Fr SVG Angiography Catheter ([id number]) DIAGNOSTIC AR MOD 5Fr SVG Angiography Catheter ([id number]) DIAGNOSTIC IM 5Fr Internal mammary catheter ([id number]) arteriography MULTIPACK Pigtail 5 Fr LV Angiography catheter Procedure Complications No complications Procedure Medications Medication Administration Route Dosage 0.9% NaCl I.V. 100 ml/hr Oxygen etCO2 Nasal cannula 2 l/min Heparin Flush Bag added to field 2 bags (1000units/500ml NS) Lidocaine 2% added to field 20 Versed I.V. 2 mg Fentanyl I.V. 100 mcg Versed I.V. 2 mg Fentanyl I.V. 100 mcg Versed I.V. 1 mg Heparin Bolus I.V. 01491 units Versed I.V. 1 mg Hemodynamics Rest Heart Rate: 62 (bpm) Pressure Samples Time Site Value (mmHg) Purpose Heart Use Rate(bpm) 14:44 LV 117/7,17 EDP 66 Gradients Valve Time Site Site Mean SEP/DFP Peak To Heart Use 1 2 (mmHg) (sec/min) Peak Rate (mmHg) (bpm) Aortic 14:45 LV AO 66 Snapshots Pre Cath Intra NCS Post Cath Vital Signs Time Heart Resp SPO2 etCO2 NIBP (mmHg) Rhythm Pain Sedation Rate (ipm) (%) (mmHg) Status Level (bpm) 14:20:45 60 17 97 28.7 135/80(107) NSR 0 (11) 10(A) , No pain 14:24:55 64 19 95 28.7 117/81(96) NSR 0 (11) 10(A) , No pain 14:29:00 60 16 96 34.1 121/73(89) NSR 0 (11) 10(A) , No pain 14:33:02 62 15 95 40.1 125/77(85) NSR 0 (11) 10(A) , No pain 14:37:06 64 18 93 17.3 122/90(109) NSR 0 (11) 9(A) , No pain 14:42:13 66 15 94 32.5 136/78(115) NSR 0 (11) 9(A) , No pain 14:46:19 64 10 94 22.6 129/90(107) NSR 0 (11) 9(A) , No pain 14:50:23 67 12 95 32.5 124/93(108) NSR 0 (11) 9(A) , No pain 14:54:24 66 13 96 30.2 114/93(112) NSR 0 (11) 9(A) , No pain 14:59:28 68 13 95 37.7 140/93(113) NSR 0 (11) 9(A) , No pain 15:03:39 68 15 96 34.7 122/77(98) NSR 0 (11) 9(A) , No pain Medications Time Medication Route Dose Verified Delivered Reason Note s Effectiveness by by 14:20:29 0.9% NaCl I.V. 100 Anatoly Anatoly Per physician ml/hr Chely Mo RN RN 14:20:38 Oxygen etCO2 2 Anatoly Anatoly for low 02 sats Nasal l/min Chely Mo cannula RN RN 14:20:47 Heparin Flush added 2 bags Anatoly Anatoly used for Bag to Chely Mo procedure (1000units/500ml field PHELPS RN NS) 14:21:09 Lidocaine 2% added 20ml Anatoly Anatoly for local to vial Chely Mo anesthetic field RN RN 14:27:30 Versed I.V. 2 mg Anatoly Anatoly for sedation Chely Mo RN RN 14:27:38 Fentanyl I.V. 100 Anatoly Anatoly for sedation mcg Chely Mo RN RN 14:34:56 Versed I.V. 2 mg Anatoly Anatoly for sedation Chely Mo RN RN 14:35:01 Fentanyl I.V. 100 Anatoly Anatoly for sedation mcg Chely Mo RN RN 14:44:39 Versed I.V. 1 mg Anatoly Anatoly for sedation Chely Mo RN RN 14:50:20 Heparin Bolus I.V. 10,000 Anatoly Anatoly for units Chely Mo anticoagulation RN RN 15:00:14 Versed I.V. 1 mg Anatoly Anatoly for sedation Chely Mo RN pan reclaim processor Log Time Note 14:11:22 Anatoly Mo RN sent for patient. Start room use. 14:11:23 Time tracking: Regular hours (M-F 7:00 - 5:00) 14:11:27 Plan of Care:Hemodynamics will remain stable., Cardiac rhythm will remain stable., Comfort level will be maintained., Respiratory function will remain adequate., Patient/ family verbilizes understanding of procedure., Procedure tolerated without complication., Recovers from procedure without complications.. 14:12:02 Procedure type changed to Cath procedure, Diagnostic procedure, LHC, LHC w/Coronaries w/Grafts, Sedation Charges, Moderate Sedation up to 30 minutes, PCI procedure, Coronary Stent, Coronary Stent Initial x2 14:19:33 Patient received from Pre/Post Procedure Room to CCL 2 Alert and oriented. Tansferred to table in Supine position. 14:19:35 Warm blankets applied, and cathy hugger turned on for patient comfort. 14:19:35 Correct patient and procedure confirmed by team. 14:19:36 Signed procedure consent form obtained from patient. 14:19:37 ECG and BP/O2 sat monitors applied to patient. 14:19:38 Vital chart was started 14:19:39 Full Disclosure recording started 14:19:48 H&P Date Dictated: 05/21/2018 Within 30 days and on chart., H&P Addendum completed by physician on day of procedure. (MUST COMPLETE FOR ALL OUTPATIENTS). 14:19:51 Pre-procedure instructions explained to patient. 14:19:51 Pre-op teaching completed and patient verbalized understanding. 14:19:57 Rhythm: sinus rhythm 14:19:59 Family in patients room. 14:20:02 Patient NPO since Midnight. 14:20:29 0.9% NaCl 100 ml/hr I.V. was administered by Anatoly Mo RN; Per physician; 14:20:32 Patient allergic to No known allergies 14:20:35 Is the patient allergic to Iodine/contrast media? No. 14:20:38 Oxygen 2 l/min etCO2 Nasal cannula was administered by Anatoly Mo RN; for low 02 sats; 14:20:47 Heparin Flush Bag (1000units/500ml NS) 2 bags added to field was administered by Anatoly Mo RN; used for procedure; 14:20:47 Patient diabetic? No. 14:21:03 Is patient on blood thinner?Yes 14:21:08 ACC The patient was administered the following blood thiners within the last 24 hours: ACCPlavix 14:21:09 Lidocaine 2% 20ml vial added to field was administered by Anatoly Mo RN; for local anesthetic; 14:21:12 Previous problem with sedation/anesthesia? No ? 14:21:13 Snore? No 14:21:14 Sleep apnea? No 14:21:15 Deviated septum? No 14:21:16 Opens mouth fully? Yes 14:21:17 Sticks out tongue? Yes 14:21:19 Airway obstruction? No ? 14:21:21 Dentures? No ? 14:21:24 Pre procedure: right dorsailis pedis pulse 2+ Normal; easily identifiable; not easily obliterated 14:21:27 Patient pain scale 0/10 ?. 14:21:32 IV patent on arrival in left forearm with 0.9% NaCl at [facility]. 14:21:33 Lab results completed and on chart. 14:21:37 Right groin area was prepped with chlora-prep and draped in sterile fashion 14:21:38 Alarms reviewed by R. N. 14:21:38 Sharps counted by scrub and verified by R.N. 14:21:43 Use device set Femoral Dx 14:21:44 ACIST Syringe (56705) opened to sterile field. 14:21:45 Bag Decanter (2002S) opened to sterile field. 14:21:46 Medline Cath Pack ([id number]) opened to sterile field. 14:21:46 DIAGNOSTIC WIRE .035 260cm J wire (489223) opened to sterile field. 14:21:47 ACIST Hand Control (37151) opened to sterile field. 14:21:48 ACIST Manifold (61572) opened to sterile field. 14:21:48 DIAGNOSTIC Multipack 5Fr catheter set (MB4940) opened to sterile field. 14:21:49 Tegaderm 4 x 4 (1626W) opened to sterile field. 14:21:51 SHEATH 5FR [place] (OAE452) opened to sterile field. 14:22:08 Baseline sample Acquired. 14:27:00 Final Timeout: patient, procedure, and site verified with staff and physician. All members of the team are in agreement. 14:27:02 Right groin site verified by team. 14:27:05 Maximum allowable Isovue 300 dose 300ml. Physician notified. (300ml for normal creatinines. For patients with creatinine of 1.7 or higher multiply weight(kg) x 5 divided by creatinine.) 14:27:08 Fire Safety Assessment: A--An alcohol-based skin anteseptic being used preoperatively., C--Open oxygen or nitrous oxide is being used., D--An ESU, laser, or fiber-optic light is being used. 14:27:11 Physical assessment completed. ASA score P 2 - A patient with mild systemic disease as per Lake Connolly MD. 14:27:14 Sedation plan: IV Moderate Sedation Medication:Versed, Fentanyl 14:27:30 Versed 2 mg I.V. was administered by Anatoly Mo RN; for sedation; 14::38 Fentanyl 100 mcg I.V. was administered by Anatoly Mo RN; for sedation; 14:29:27 Zero performed for pressure channel P1 14::39 Procedure started. 14::44 Local anesthetic to right femoral artery with Lidocaine 2% by Lake Connolly MD.INITIAL ACCESS ONLY 14:33:45 A 5 Fr sheath was inserted into the Right Femoral artery 14:34:52 A MULTIPACK JL 4.0 5Fr catheter was advanced over the wire and used for Left Coronary Angiography. 14:34:56 Versed 2 mg I.V. was administered by Anatoly Mo RN; for sedation; 14:35:01 Fentanyl 100 mcg I.V. was administered by Anatoly Mo RN; for sedation; 14:37:00 Catheter removed. 14:37:11 A DIAGNOSTIC AR MOD 5Fr Catheter ([id number]) was advanced over the wire and used for Right Coronary Angiography. 14:38:31 A DIAGNOSTIC AR MOD 5Fr Catheter (309496Q) was advanced over the wire and used for SVG Angiography. TO RCA--OCCLUDED 14:38:48 A DIAGNOSTIC AR MOD 5Fr Catheter (332545F) was advanced over the wire and used for SVG Angiography. TO CIRC 14:41:12 Catheter removed. 14:41:33 A DIAGNOSTIC IM 5Fr catheter (125908V) was advanced over the wire and used for Internal mammary arteriography. TO LAD 14:43:20 Catheter removed. 14:43:41 A MULTIPACK Pigtail 5 Fr catheter was advanced over the wire and used for LV Angiography. 14:44:39 Versed 1 mg I.V. was administered by Anatoly Mo RN; for sedation; 14:44:47 LV gram done using DOLL 14:44:48 LV hemodynamics recorded. 14:44:50 Injector settings: Ml/sec: 5, Volume: 15, 14:44:55 EF : 55 % 14:45:16 Catheter removed. 14:46:28 Use device set CONNOLLY PCI 14:46:30 SHEATH 6FR [place] (CBR368) opened to sterile field. 14:46:33 TUBING High Pressure Extension Tubing (Connolly) ([id number]) opened to sterile field. 14:46:35 INFLATOR Merit BasixCompak (YI4430) opened to sterile field. 14:46:46 GUIDE 6FR XBLAD 3.5 catheter ([id number]) opened to sterile field. 14:47:13 Sheath upsized to a 6 Fr Short. 14:48:49 6 Fr XBLAD 3.5 guide catheter was inserted over the wire 14:50:20 Heparin Bolus 10,000 units I.V. was administered by Anatoly Mo RN; for anticoagulation; 14:50:33 BMW wire advanced. 14:55:20 Place stent Inflation Number: 1 A JANUSZ RX 3.0 x 15 stent ([id number]) was prepped and advanced across the Prox CX. The stent was deployed at 12 YEISON for 0:14 (min:sec). 14:55:53 Inflation number: 1 The stent balloon was then re-inflated across the LMCA to 12 YEISON for 0:06 (min:sec). 14:56:15 Stent catheter was removed intact over wire. 14:59:36 Place stent Inflation Number: 2 A JANUSZ OTW 3.5 x 12 stent ([id number]) was prepped and advanced across the LMCA. The stent was deployed at 12 YEISON for 0:08 (min:sec). 15:00:09 Stent catheter was removed intact over wire. 15:00:09 Wire removed. 15:00:11 Guide catheter removed. 15:00:14 Versed 1 mg I.V. was administered by Anatoly Mo RN; for sedation; 15:00:53 Sheath removed intact; hemostasis achieved with Exoseal to the Right Femoral artery. 15:00:59 Procedure ended.(Physican Out) 15:01:03 EXOSEAL 6Fr (EX600) opened to sterile field. 15:01:14 Fluoroscopy time 07.10 minutes. 15:01:18 Flurop Dose total: 1576 15:01:18 Fluoroscopy dose: 1576 mGy 15:01:22 Contrast amount:Isovue 300 128ml. 15:01:23 Sharps counted by scrub and verified by R.N. 15:01:25 Insertion/operative site no bleeding no hematoma. 15:01:28 Post-op/insertion site Right Femoral artery dressed using a 4 x 4 and Tegaderm. 15:01:31 Post right femoral artery:stable, clean and dry 15:01:32 Post Procedure Pulses reassessed and unchanged 15:01:35 Post-procedure physical assessment completed. ASA score P 2 - A patient with mild systemic disease as per Lake Connolly MD. 15:01:37 Post procedure rhythm: unchanged. 15:01:39 Estimated blood loss: 10 ml 15:01:40 Post procedure instruction explained to patient.Patient verbalizes understanding. 15:01:41 Patient needs reinforcement of post procedure teaching. 15:01:46 Procedure Complication : No complications 15:03:43 See physician's report for complete and final results. 15:04:07 Procedure and supply charges have been captured, reviewed, submitted and are correct. 15:05:22 Vital chart was stopped 15:05:24 Report given to Pre/Post Procedure Room. 15:05:27 Patient transfered to Pre/Post Procedure Room with Stretcher. 15:05:34 Procedure ended. 15:05:34 Full Disclosure recording stopped 15:05:40 End room use (Document Last) Intervention Summary Intervention Notes Time ActionType Lesion and Equipment Used Action# Pressure Duration Attributes 14:55:20 Place stent Prox CX JANUSZ RX 3.0 x 1 12 00:14 15 stent ([id number]) 14:55:53 Reinflate LMCA JANUSZ RX 3.0 x 1 12 00:06 stent 15 stent balloon ([id number]) 14:59:36 Place stent LMCA JANUSZ OTW 3.5 x 2 12 00:09 12 stent ([id number]) Device Usage Item Name Manufacture Quantity Catalog [facility] Lot# / Number Charge Number Stock Stock Serial# Code ACIST Syringe Acist 1 02287 712166 878948 416630 20 (38189) Qonf Inc Bag Decanter Microtek 1 375863 24569 399353 5 () [employer] Medline Cath Medline 1 [id number] 303664 01745 746462 5 Pack ([id number]) DIAGNOSTIC [facility] 1 407155 816456 149438 371813 30 WIRE .035 260cm J wire (591584) ACIST Hand Acist 1 36112 180968 346530 727141 5 Control Medical (56667) Systems Inc ACIST Manifold Acist 1 12435 140566 380223 022588 5 (09042) Medical Systems Inc DIAGNOSTIC Cardinal 1 [id number] 028146 84709 175091 30 Multipack 5Fr Health catheter set (NP4229) Tegaderm 4 x 4 3M 1 1626W 797051 349922 086794 5 (1626W) SHEATH 5FR Terumo 1 MJW855 887765 918318 947588 5 [place] (SVX805) MULTIPACK JL Cardinal 1 979655 5 4.0 5Fr Health catheter DIAGNOSTIC AR Cardinal 1 [id number] 010878 992747 546157 15 MOD 5Fr Health Catheter (924607E) DIAGNOSTIC IM Cardinal 1 [id number] 236251 415108 116085 5 5Fr catheter Health (182828S) MULTIPACK Cardinal 1 403301 5 Pigtail 5 Fr Health catheter SHEATH 6FR Terumo 1 CMO249 288878 748556 267652 40 [place] (XTM464) TUBING High Merit 1 [id number] 081418 59528 207568 10 Pressure Medical Extension Tubing (Connolly) ([id number]) INFLATOR Merit Merit 1 RK6910 996440 620240 597871 15 [facility] Medical (WE4751) GUIDE 6FR Cardinal 1 [id number] 416472 335074 518383 10 XBLAD 3.5 Health catheter ([id number]) JANUSZ RX 3.0 x Medtronic 1 [id number] 287901 4339086 033846 5 [id number] 15 stent ([id number]) JANUSZ OTW 3.5 x Medtronic 1 [id number] 777946 1700557 633977 5 [id number] 12 stent ([id number]) EXOSEAL 6Fr Cardinal 1 EX600 042626 277627 500954 10 (EX600) Health Signature Audit [place] Stage Time Signature Unsigned Intra-Procedure 05/23/2018 Sara 3:05:52 PM Counts RT(R) Signatures Monitor : Sara Signature : Counts RT Date : Time : [address] [place] [address]
[~2018-05-23 11:10] MED LIST changes: +PLAVIX75 MG PO
[2018-05-23] MEDS ORDERED: NITROSTAT0.4 MG SL (11:43)
[2018-05-23] MEDS ORDERED: CO Q-10100 MG PO (11:43)
[2018-05-23] MEDS ORDERED: KRILL OIL 1,001 EAC1 PO (11:44)
[2018-05-23] MEDS ORDERED: ISOSORBIDE MONO60 M1 PO (11:47)
[2018-05-23 11:57] VITALS: BP 125/84; Ht 177.8 cm; Wt 96.8 kg
[2018-05-23 12:46] LABS: CALC OSMOLALITY 277 mosm/kg (275-300); CALCIUM 8.9 mg/dL (8.5-10.1); CARBON DIOXIDE 26.6 mmol/L (21.0-32.0); CHLORIDE - SERUM 102 mmol/L (98-107); GLUCOSE 97 mg/dL (74-106); POTASSIUM - SERUM 4.2 mmol/L (3.5-5.1); SODIUM 139 mmol/L (136-145); UREA NITROGEN 13 mg/dL (7-18); eGFR NON AFRICAN AMERICAN 84 mL/min (90-120)
[2018-05-23 13:18] LABS: BASOPHILS 0.2 % (0-2); HEMATOCRIT 45.8 % (42.0-54.0); HEMOGLOBIN 15.5 g/dL (13.5-17.5); IMMATURE GRANULOCYTES 0.2 % (0-5); LYMPHOCYTES 23.8 % (15-50); MCH 31.3 pg (26.0-34.0); MCHC 33.8 g/dL (31.0-37.0); MCV 92.5 fL (80.0-100.0); MEAN PLATELET VOLUME 10.7 fL (7.4-10.4); MONOCYTES 6.8 % (2-11); PLATELET COUNT 236 10x3/uL (130-400); RBC 4.95 10x6/uL (4.20-6.10); RDW 13.3 % (11.5-14.5); WBC 9.1 10x3/uL (4.8-10.8)
--- NOTE | 2018-05-23 15:15 | NUR ---
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 DR GRECO PRESENT AT BEDSIDE WITH PATIENT AND .
--- NOTE | 2018-05-23 15:37 | NUR ---
6 FR EXOSEAL R/GROIN IS CDI WITH PATIENT RESTING QUIETLY. AT BEDSIDE VSS
--- NOTE | 2018-05-23 15:53 | NUR ---
PATIENT DENIED PAIN OR NEEDS. 6 FR EXOSEAL R/GROIN IS CDI WITH R/FOOT WARM TO TOUCH
--- NOTE | 2018-05-23 17:10 | NUR ---
RESTING QUIETLY WITH NO DISTRESS 6 FR EXOSEAL R/GROIN IS CDI
--- NOTE | 2018-05-23 17:32 | NUR ---
6 FR EXOSEAL R/GROIN REMAINS CDI WITH CHEST PAIN DENIED IS AT BEDSIDE CALL LIGHT IN REACH
--- NOTE | 2018-05-23 17:50 | NUR ---
REPOSITIONED TO SITTING WITH HOB UP 30 FOR COMFORT. CHEST PAIN IS DENIED AND 6 FR EXOSEAL R/GROIN IS CDI.
--- NOTE | 2018-05-23 18:17 | NUR ---
VERBAL AND WRITTEN DISCHARGE GONE OVER WITH PATIENT AND ,BOTH VERBALIZED UNDERSTANDING. 6 FR EXOSEAL R/GROIN IS CDI AND CHEST PAIN IS DENIED. PIV REMOVED WITH DRESSING APPLIED
--- NOTE | 2018-05-23 18:27 | NUR ---
PATIENT LEFT VIA WC TO PARKING FOR TRANSPORT HOME 6 FR EXOSEAL R/GROIN IS CDI AND CHEST PAIN IS DENIED. NO DISTRESS.
== END 2018-05-23 18:28 | disposition home or self-care (01) ==
LOC: D.CATH 11:10
PROVIDERS: ATTEND Internal Medicine Cardiovascular Disease
DX: I25.110 Atherosclerotic heart disease of native coronary artery with unstable angina pectoris (principal); Z01.812 Encounter for preprocedural laboratory examination